=== PATIENT | male | born 1995 | race Two or more races ===

== ENCOUNTER 2017-05-01 01:44 | Emergency (ER) | payer SELFPAY ==
[~2017-05-01 01:44] MED LIST: ANTIBIOTIC PO; CATAFLAM50 MG PO; IBUPROFEN200 MG PO; MOTRIN800 MG PO; NORCO 5/325 TAB1 TAB PO
== END 2017-05-01 03:00 ==
LOC: EDMED 01:44
PROC: 2W3QXYZ Immobilization of Right Lower Leg using Other Device (ICD-10-PCS; principal; 2017-05-01)
DX: S86.911A Strain of unspecified muscle(s) and tendon(s) at lower leg level, right leg, initial encounter (principal); S83.91XA Sprain of unspecified site of right knee, initial encounter; W19.XXXA Unspecified fall, initial encounter; Y92.410 Unspecified street and highway as the place of occurrence of the external cause